=== PATIENT | female | born 1990 | race Hispanic/Latino ===

== ENCOUNTER → 2018-01-11 | Outpatient (CLI) | payer MEDICAID, SELFPAY ==
[2018-01-11 14:39] LABS: AMORPHOUS SEDIMENT LARGE (NEGATIVE); APPEARANCE, URINE CLOUDY (CLEAR); BACTERIA, URINE AUTO 1+ (NEGATIVE); BILIRUBIN, URINE AUTO NEGATIVE (NEGATIVE); BLOOD, URINE BLOOD NEGATIVE (NEGATIVE); COLOR, URINE YELLOW (YELLOW); GLUCOSE, URINE (UA) AUTO NEGATIVE (NEGATIVE); KETONE, URINE AUTO NEGATIVE (NEGATIVE); LEUKOCYTE ESTERASE, URINE AUTO NEGATIVE (NEGATIVE); NITRITE, URINE AUTO NEGATIVE (NEGATIVE); PROTEIN, URINE AUTO NEGATIVE (NEGATIVE); RBC, URINE AUTO 4 /HPF (0-3); SQUAMOUS EPITHELIAL CELL UR AU 2 /HPF (0-6); WBC, URINE AUTO 1 /HPF (0-3)
[2018-01-11 15:00] LABS: ALBUMIN 3.6 GM/DL (3.2-5.2); ALBUMIN/GLOBULIN RATIO 0.84 (1.00-1.93); ALKALINE PHOSPHATASE 86 U/L (45-117); ALT/SGPT 58 U/L (12-78); ANION GAP 4 MEQ/L (8-16); AST/SGOT 29 U/L (7-37); BILIRUBIN,TOTAL 0.3 MG/DL (0.2-1.0); BLOOD UREA NITROGEN 8 MG/DL (7-18); CARBON DIOXIDE LEVEL 30 MEQ/L (21-32); CHLORIDE LEVEL 106 MEQ/L (98-107); CREATININE FOR GFR 0.61 MG/DL (0.55-1.30); GLOMERULAR FILTRATION RATE > 60.0 (>60); GLUCOSE, FASTING 97 MG/DL (70-100); POTASSIUM SERUM 4.3 MEQ/L (3.5-5.1); SODIUM LEVEL 140 MEQ/L (136-145); TOTAL PROTEIN 7.9 GM/DL (6.4-8.2)
[2018-01-11 15:48] LABS: HIV 1&2 SCREEN CENTAUR NEGATIVE (NEGATIVE)
[2018-01-13 09:02] LABS: HEPATITIS B SURFACE ANTIBODY NEGATIVE (POSITIVE)
[2018-01-13 09:12] LABS: HEPATITIS B SURFACE ANTIGEN NEGATIVE (NEGATIVE)
[2018-01-17 08:06] LABS: ALPHA 2-MACROGLOBULIN 273 mg/dL (110-276); ALT 48 IU/L (0-40); APOLIPOPROTEIN A-1 126 mg/dL (116-209); FIBROSIS SCORE 0.12 (0.00-0.21); GGT 88 IU/L (0-60); HAPTOGLOBIN 239 mg/dL (34-200); HEPATITIS A IgG TOTAL Negative (Negative); HEPATITIS C QUANTITATION HCV Not Detected IU/mL (.); NECROINFLAM SCORE 0.22 (0.00-0.17); NECROINFLAMM GRADE A0-A1 (.); TOTAL BILIRUBIN 0.2 mg/dL (0.0-1.2)
== END ==
LOC: M LAB 13:47
DX: Z11.59 Encounter for screening for other viral diseases (principal)
CPT/HCPCS: 82247; 84460

== ENCOUNTER → 2018-01-17 | Outpatient (CLI) | payer MEDICAID, SELFPAY ==
[2018-01-17 09:49] LABS: BASO % 0.3 % (0.0-1.0); EOS # 0.1 10^3/uL (0.0-0.50); EOS % 0.8 % (0.0-3.0); HEMATOCRIT 37.5 % (36.0-47.0); HEMOGLOBIN 12.1 g/dl (12.0-15.5); IMMATURE GRANULOCYTE % 0.1 % (0-3.0); LYMPH # 1.9 10^3/uL (1.5-6.5); LYMPH % 24.4 % (24.0-44.0); MEAN CORPUSCULAR HEMOGLOBIN 29.3 pg (27.0-33.0); MEAN CORPUSCULAR HGB CONC 32.3 g/dl (32.0-36.5); MEAN CORPUSCULAR VOLUME 90.8 fl (80.0-96.0); MONO # 0.6 10^3/uL (0.0-0.8); MONO % 7.4 % (0.0-5.0); NEUTROPHILS # 5.1 10^3/uL (1.8-7.7); PLATELET COUNT, AUTOMATED 390 10^3/uL (150-450); RED BLOOD COUNT 4.13 10^6/uL (4.00-5.40); RED CELL DISTRIBUTION WIDTH 14.8 % (11.5-14.5); WHITE BLOOD COUNT 7.6 10^3/uL (4.0-10.0)
== END ==
LOC: M LAB 08:54
DX: Z11.4 Encounter for screening for human immunodeficiency virus [HIV] (principal); B18.2 Chronic viral hepatitis C (principal)
CPT/HCPCS: 85025

== ENCOUNTER 2018-03-31 14:02 | Inpatient (IN) | payer MEDICAID, OTHER ==
[~2018-03-31] VITALS: Ht 165.1 cm; Wt 130.4 kg
[2018-03-31] MEDS ORDERED: TRAZ-160 PO (14:41)
[2018-03-31] MEDS ORDERED: MELA10CA PO (14:41)
[2018-03-31] MEDS ORDERED: BUSP10TA PO (14:41)
[2018-03-31] MEDS ORDERED: VIVI380I IM (14:41)
[2018-03-31 15:45] LABS: HEMOGLOBIN 13.7 g/dl (12.0-15.5); MEAN CORPUSCULAR HGB CONC 31.9 g/dl (32.0-36.5); MEAN CORPUSCULAR VOLUME 90.9 fl (80.0-96.0); PLATELET COUNT, AUTOMATED 384 10^3/uL (150-450); RED BLOOD COUNT 4.73 10^6/uL (4.00-5.40); WHITE BLOOD COUNT 11.5 10^3/uL (4.0-10.0)
[2018-03-31 16:12] LABS: HCG, SERUM QUALITATIVE NEGATIVE (NEGATIVE)
[2018-03-31 16:23] LABS: AMPHETAMINES LEVEL URINE NEGATIVE (NEGATIVE); BARBITURATES URINE NEGATIVE (NEGATIVE); BENZODIAZEPINES URINE NEGATIVE (NEGATIVE); CANNABINOIDS URINE NEGATIVE (NEGATIVE); COCAINE METABOLITE URINE NEGATIVE (NEGATIVE); METHADONE URINE NEGATIVE (NEGATIVE); OPIATES URINE NEGATIVE (NEGATIVE); PHENCYCLIDINE URINE NEGATIVE (NEGATIVE)
[2018-03-31 16:28] LABS: ACETAMINOPHEN LEVEL < 2.0 UG/ML (10.0-30.0); ALBUMIN 3.8 GM/DL (3.2-5.2); ALT/SGPT 31 U/L (12-78); BILIRUBIN,DIRECT 0.1 MG/DL (0.0-0.2); BILIRUBIN,TOTAL 0.3 MG/DL (0.2-1.0); BLOOD UREA NITROGEN 6 MG/DL (7-18); CALCIUM LEVEL 8.9 MG/DL (8.5-10.1); CARBON DIOXIDE LEVEL 26 MEQ/L (21-32); CHLORIDE LEVEL 105 MEQ/L (98-107); CREATININE FOR GFR 0.66 MG/DL (0.55-1.30); ETHYL ALCOHOL (ETHANOL) < 0.003 % (0.000-0.010); GLOMERULAR FILTRATION RATE > 60.0 (>60); GLUCOSE, FASTING 91 MG/DL (70-100); POTASSIUM SERUM 4.1 MEQ/L (3.5-5.1); SALICYLATE LEVEL < 1.7 MG/DL (5.0-30.0); SODIUM LEVEL 138 MEQ/L (136-145); THYROID STIMULATING HORMONE 0.502 uIU/ML (0.358-3.740); TOTAL PROTEIN 8.2 GM/DL (6.4-8.2)
[2018-03-31] MEDS ORDERED: NICO4GUM2 PO (17:36)
[2018-03-31] MEDS ORDERED: ACETAMINOPHEN TAB 650MG DOSE (2X325MG) PO PRN (18:00)
[2018-03-31] MEDS ORDERED: MOM 30ML SUSPENSION UDC PO PRN (18:00)
[2018-03-31] MEDS ORDERED: OLANZapine ORAL DISINTEGRATING TAB 5MG PO PRN (18:00)
[2018-03-31] MEDS ORDERED: MAALOX 30 ML SUSP *UDC PO PRN (18:00)
[2018-03-31 19:00] VITALS: BP 131/87
[2018-04-01 06:00] VITALS: BP 113/72
[2018-04-01 10:55] VITALS: BP 136/87
--- NOTE | 2018-04-01 12:44 | NUR ---
Patient seen, note to follow.
[2018-04-01] MEDS: ESCITALOPRAM OXALATE 5MG TABLET (LEXAPRO) PO SCH (15:17)
[2018-04-01] MEDS: busPIRone 5 MG TAB PO SCH ×2 (15:17→22:51)
[2018-04-01 18:00] VITALS: BP 134/80
[2018-04-01] MEDS: traZODone 50 MG TAB PO PRN (22:51)
[2018-04-02 06:00] VITALS: BP 135/72
[2018-04-02] MEDS: busPIRone 5 MG TAB PO SCH ×3 (08:27→21:30)
[2018-04-02] MEDS: ESCITALOPRAM OXALATE 5MG TABLET (LEXAPRO) PO SCH (08:27)
[2018-04-02 18:00] VITALS: BP 140/77
[2018-04-02] MEDS: traZODone 50 MG TAB PO PRN (21:30)
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
[2018-04-02] MEDS: metroNIDAZOLE 70 GM VAGINAL GEL PV SCH (23:39)
[2018-04-03 06:49] VITALS: BP 118/62
--- NOTE | 2018-04-03 08:18 | MHIPN ---
DATE: 04/02/2018 CHIEF COMPLAINT: Feel anxious. SUBJECTIVE: Seen for follow-up in the presence of staff. Says feels anxious, but not as much as she did yesterday, feels a bit more rested, and slept fairly well. Appetite is good. Says spoke with her mother, and that went well. Says feels irritable, but less so than previously. MENTAL STATUS EXAMINATION: Neat. Cooperative. No agitation. No psychomotor retardation. She is coherent. Her affect is broader, denies any thoughts of harming herself at present. No homicidal ideas or intents. No evidence of any psychosis. Cognition is grossly intact. Judgment remains questionable, as is insight. ASSESSMENT: Other specified depressive disorder. Opiate use disorder. Amphetamine use disorder. PLAN: Continue current care, observations, and has been started on Lexapro, it should be titrated upwards. She is to be encouraged to participate in activities on the unit. She will see the psychiatrist and the treatment team tomorrow. VITAL SIGNS: These are as listed. Blood pressure 155/72, pulse 68, temperature 97.4.
[2018-04-03] MEDS: busPIRone 5 MG TAB PO SCH ×3 (08:39→22:21)
[2018-04-03] MEDS: ESCITALOPRAM OXALATE 5MG TABLET (LEXAPRO) PO SCH (08:39)
[2018-04-03] MEDS: BETAMETHASONE DIP 0.05% OINT 15 GM TOP SCH (08:41)
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
[2018-04-03] MEDS ORDERED: hydrOXYzine 50 MG TAB PO PRN (11:30)
[2018-04-03] MEDS ORDERED: ESCITALOPRAM OXALATE 5MG TABLET (LEXAPRO) PO ONE (11:30)
[2018-04-03 18:00] VITALS: BP 134/86
[2018-04-03] MEDS: traZODone 50 MG TAB PO PRN (22:21)
[2018-04-03] MEDS: metroNIDAZOLE 70 GM VAGINAL GEL PV SCH (22:22)
[2018-04-04 06:00] VITALS: BP 113/63
[2018-04-04 06:37] VITALS: BP 113/63
[2018-04-04] MEDS: ESCITALOPRAM OXALATE 10 MG TAB (LEXAPRO) PO SCH (09:13)
[2018-04-04] MEDS: busPIRone 5 MG TAB PO SCH ×3 (09:13→21:28)
[2018-04-04] MEDS: BETAMETHASONE DIP 0.05% OINT 15 GM TOP SCH (09:14)
--- NOTE | 2018-04-04 09:53 | HPE ---
DATE OF ADMISSION: 03/31/2018 PRIMARY CARE PROVIDER: [facility], JULIET Tracey. HISTORY OF PRESENT ILLNESS: Please refer to psychiatric history and evaluation for further details on this admission. This examination and history is intended for medical issues, which may need treatment, followup or consultation on this 27-year-old female. ALLERGIES: No known drug allergies. SOCIAL HISTORY: She is single. She is currently living at the [facility]. ETOH none. Smokes none. Recreational drug use: She has a four year history of intravenous (IV) heroin use. She has been clean for 6 months. PAST MEDICAL HISTORY: 1. Psoriasis. 2. Anxiety. 3. History of methicillin resistant Staphylococcus aureus (MRSA). PAST SURGICAL HISTORY: Appendectomy. LABORATORY STUDIES: White count 11.5, hemoglobin 13.7, hematocrit 43. Chemistries: Elect were normal. Anion gap 7, BUN 6, creatinine 0.66. TSH 0.502. TCH was negative. Toxicology was negative. HOME MEDICATIONS: - buspirone 10 mg by mouth three times a day - nicotine 4 mg gum as needed for withdrawal - trazodone 50 mg by mouth nightly - melatonin 10 mg by mouth nightly - naltrexone 380 mg injection FAMILY HISTORY: Noncontributory. Urine toxicology was negative. 10-systems review was done. Patient's only complaint of some psoriatic rash, not quite flaky, on her flank, upper thighs, and arms. She has a history of psoriasis. PHYSICAL EXAMINATION: GENERAL: 27-year-old female in no acute distress. Height 65 inches, weight 134 kg, body mass index (BMI) 49.2. Patient is alert and oriented times three. Pupils equal and react to light. Extraocular movements intact. Cornea and sclerae clear. Conjunctiva is normal. No facial asymmetry. Pharynx, tongue and gum, pink and moist. Tongue is midline. Neck is supple without lymphadenopathy. No thyromegaly. No goiter. Carotids 2+ without bruit. CHEST: Clear to auscultation without wheeze or retraction. Heart is regular. ABDOMEN: Benign. Bowel sounds positive. GENITOURINARY ()/RECTAL: Not done. EXTREMITIES: Show equal strength, full range of motion. No cyanosis, clubbing, or edema. SKIN: Warm and dry, except for slight rash on right flank, both forearms, both upper thighs, and bilateral upper arms. Betamethasone ointment twice a day to those areas. IMPRESSION/PLAN: 1. Psychiatric plan per psychiatry. 2. For psoriasis, start betamethasone ointment twice a day to affected areas, back, upper thighs, and arms. 3. History hypertension. Continued followup with for her hypertension.
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
[2018-04-04] MEDS ORDERED: hydrOXYzine 25 MG TAB PO PRN (10:15)
[2018-04-04 18:00] VITALS: BP 144/80
[2018-04-04] MEDS: traZODone 50 MG TAB PO PRN (21:29)
[2018-04-04] MEDS: metroNIDAZOLE 70 GM VAGINAL GEL PV SCH (21:45)
[2018-04-05 06:35] VITALS: BP 138/80
[2018-04-05] MEDS: BETAMETHASONE DIP 0.05% OINT 15 GM TOP SCH (08:40)
[2018-04-05] MEDS: ESCITALOPRAM OXALATE 10 MG TAB (LEXAPRO) PO SCH (08:40)
[2018-04-05] MEDS: busPIRone 5 MG TAB PO SCH (08:40)
[2018-04-05] MEDS ORDERED: HYDR-3363 PO (08:46)
[2018-04-05] MEDS ORDERED: ESCI10TA2 PO (08:46)
[2018-04-05] MEDS ORDERED: BUSP15TA47 PO (08:46)
[2018-04-05] MEDS ORDERED: TRAZO50TA PO (08:46)
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
== END 2018-04-05 13:20 | disposition hospice, home (50) | DRG 753 ==
LOC: M ED 14:02 → M ED INP 17:57 → M PSY 18:18
PROVIDERS: ADMIT Psychiatry & Neurology Psychiatry; ATTEND Psychiatry & Neurology Psychiatry
DX: F32.89 Other specified depressive episodes (principal); F11.10 Opioid abuse, uncomplicated; F15.10 Other stimulant abuse, uncomplicated; F41.9 Anxiety disorder, unspecified; L40.9 Psoriasis, unspecified; Z62.810 Personal history of physical and sexual abuse in childhood; Z91.410 Personal history of adult physical and sexual abuse; Z79.899 Other long term (current) drug therapy; Z91.5 Personal history of self-harm; Z86.14 Personal history of Methicillin resistant Staphylococcus aureus infection

== ENCOUNTER → 2018-06-20 | Outpatient (RCR) | payer OTHER ==
[~2018-06-20] MED LIST: BUSP10TA PO; BUSP15TA47 PO; ESCI10TA2 PO; HYDR-3363 PO; MELA10CA PO; NICO4GUM2 PO; TRAZ-160 PO; TRAZO50TA PO; VIVI380I IM
== END ==
LOC: M PT 06-09 08:17
PROVIDERS: ATTEND Internal Medicine
DX: M54.5 Low back pain (principal)

== ENCOUNTER 2018-07-20 08:45 | Outpatient (RCR) | payer OTHER | END 2018-07-21 | LOC: M PT 08:45 | PROVIDERS: ATTEND Physician Assistant | DX: M54.5 Low back pain (principal); M79.7 Fibromyalgia ==

== ENCOUNTER 2018-08-02 08:45 | Outpatient (RCR) | payer OTHER ==
[~2018-08-02 08:45] MED LIST changes: -TRAZ-160 PO; +TRAZ-252 PO; +TRAZ1TAB10 PO; -TRAZO50TA PO
== END 2018-08-20 ==
LOC: M PT 08:45
PROVIDERS: ATTEND Physician Assistant
DX: M54.5 Low back pain (principal)

== ENCOUNTER → 2018-09-05 | Outpatient (CLI) | payer OTHER ==
[2018-09-05 11:35] LABS: AMORPHOUS SEDIMENT SMALL (NEGATIVE); APPEARANCE, URINE CLEAR (CLEAR); BACTERIA, URINE AUTO NEGATIVE (NEGATIVE); BILIRUBIN, URINE AUTO NEGATIVE (NEGATIVE); BLOOD, URINE BLOOD NEGATIVE (NEGATIVE); COLOR, URINE YELLOW (YELLOW); GLUCOSE, URINE (UA) AUTO NEGATIVE (NEGATIVE); KETONE, URINE AUTO NEGATIVE (NEGATIVE); LEUKOCYTE ESTERASE, URINE AUTO NEGATIVE (NEGATIVE); MUCUS, URINE SMALL (NEGATIVE); NITRITE, URINE AUTO NEGATIVE (NEGATIVE); PROTEIN, URINE AUTO NEGATIVE (NEGATIVE); RBC, URINE AUTO 0 /HPF (0-3); SPECIFIC GRAVITY URINE AUTO 1.017 (1.002-1.035); SQUAMOUS EPITHELIAL CELL UR AU 0 /HPF (0-6); UROBILINOGEN, URINE AUTO 0.2 mg/dL (0.0-2.0); WBC, URINE AUTO 0 /HPF (0-3)
[2018-09-05 11:39] LABS: BASO % 0.4 % (0.0-1.0); EOS % 0.7 % (0.0-3.0); HEMATOCRIT 41.8 % (36.0-47.0); HEMOGLOBIN 13.3 g/dl (12.0-15.5); LYMPH # 1.3 10^3/uL (1.5-6.5); LYMPH % 22.8 % (24.0-44.0); MEAN CORPUSCULAR HEMOGLOBIN 29.6 pg (27.0-33.0); MEAN CORPUSCULAR HGB CONC 31.8 g/dl (32.0-36.5); MEAN CORPUSCULAR VOLUME 92.9 fl (80.0-96.0); MONO # 0.5 10^3/uL (0.0-0.8); MONO % 8.3 % (0.0-5.0); NEUTROPHILS # 3.8 10^3/uL (1.8-7.7); NEUTROPHILS % 67.4 % (36.0-66.0); PLATELET COUNT, AUTOMATED 349 10^3/uL (150-450); WHITE BLOOD COUNT 5.6 10^3/uL (4.0-10.0)
[2018-09-05 12:05] LABS: ALBUMIN 3.4 GM/DL (3.2-5.2); ALT/SGPT 34 U/L (12-78); BILIRUBIN,TOTAL 0.1 MG/DL (0.2-1.0); BLOOD UREA NITROGEN 12 MG/DL (7-18); CALCIUM LEVEL 9.4 MG/DL (8.5-10.1); CARBON DIOXIDE LEVEL 29 MEQ/L (21-32); CHLORIDE LEVEL 106 MEQ/L (98-107); CREATININE FOR GFR 0.68 MG/DL (0.55-1.30); GLOMERULAR FILTRATION RATE > 60.0 (>60); GLUCOSE, FASTING 120 MG/DL (70-100); POTASSIUM SERUM 4.1 MEQ/L (3.5-5.1); SODIUM LEVEL 140 MEQ/L (136-145); TOTAL PROTEIN 7.8 GM/DL (6.4-8.2)
== END ==
LOC: M LAB 10:00
PROVIDERS: ATTEND Physician Assistant Medical
DX: Z02.2 Encounter for examination for admission to residential institution (principal)